=== PATIENT | male | born 1950 | race Caucasian/White ===

== ENCOUNTER → 2017-04-17 | Day surgery (SDC) | payer MEDICARE, BC ==
[~2017-04-17] MED LIST: Dexamethasone 4 MG/ML 5 ML MDV ONE; HYDROmorphone 0.5 MG/0.5 ML Syringe IVPUSH PRN; Ketorolac 30 MG/ML SDV ONE; Lactated Ringers 1,000 ML IV SCH; Lactated Ringers 1,000 ML ONE; Lidocaine 1% 4 ML ONE; Lidocaine 1%/Sod Bicarbonate in NS 8.4% 1 ML Syringe IDERM PRN; Meperidine PF 50 MG/ML Syringe IVPUSH PRN; Midazolam 1 MG/ML 2 ML SDV ONE; Neostigmine Methylsulfate 1 MG/ML 5 ML Syringe ONE; Ondansetron 4 MG/2 ML SDV IVPUSH PRN; Ondansetron 4 MG/2 ML SDV ONE; Phenylephrine/Normal Saline 100 MCG/ML 10 ML Syringe ONE; Propofol 200 MG/20 ML SDV ONE; Rocuronium 50 MG/5 ML Vial ONE; Sodium Chloride 0.9% 10 ML Syringe FLUSH PRN; diphenhydrAMINE 50 MG/ML SDV IVPUSH PRN; fentaNYL 100 MCG/2 ML SDV IVPUSH PRN; fentaNYL 250 MCG/5 ML SDV ONE
--- NOTE | 2017-04-17 08:11 | PCM.PREANE ---
Preanesthetic Assessment - Procedure Proposed Procedure: Laparoscopi umbilical hernia repair with mesh - Anesthesia/Transfusion/Family Hx Anesthesia History: Prior Anesthesia Without Reaction Family History of Anesthesia Reaction: No Transfusion History: No Prior Transfusion(s) - Review of Systems General: No Symptoms Pulmonary: Other (TRINITY with CPAP) Cardiovascular: Other (HTN) Gastrointestinal: No Symptoms Neurological: No Symptoms Other: Reports: Diabetes (IDDM) - Physical Assessment NPO Status Date: 04/16/17 NPO Status Time: 19:00 Pulse: 71 O2 Sat by Pulse Oximetry: 96 Respiratory Rate: 20 Blood Pressure: 127/79 Temperature: 36.0 C Height: 1.85 m Weight: 112 kg ASA Class: 2 Mental Status: Alert & Oriented x3 Airway Class: Mallampati = 2 Dentition: Reports: Normal Dentition Thyro-Mental Finger Breadths: 3 Mouth Opening Finger Breadths: 3 ROM/Head Extension: Limited/Partial (cervical neck fusion) Lungs: Clear to Auscultation, Normal Respiratory Effort Cardiovascular: Regular Rate, Regular Rhythm - Lab Values: Laboratory Last Values POC Glucose 93 mg/dL (80-115) 04/17/17 07:53 - Allergies Allergies/Adverse Reactions: Allergies Allergy/AdvReac Type Severity Reaction Status Date / Time No Known Drug Allergies Allergy Other Verified 04/16/17 12:50 - Blood Blood Available: No Product(s) Available: None - Anesthesia Plan Pre-Op Medication Ordered: None - Acknowledgements Anesthesia Type Planned: General Anesthesia Pt an Appropriate Candidate for the Planned Anesthesia: Yes Alternatives and Risks of Anesthesia Discussed w Pt/Guardian: Yes Pt/Guardian Understands and Agrees with Anesthesia Plan: Yes PreAnesthesia Questionnaire HEENT History: Reports: Impaired Vision Cardiovascular History: Reports: Arrhythmia, High Cholesterol, Hypertension Other Cardiovascular History: Frequent PVCs, tachycardia Respiratory History: Reports: Sleep Apnea Other Respiratory History: CPAP to sleep Gastrointestinal History: Reports: GERD, Other (See Below) Other Gastrointestinal History: symptomatic umbilical hernia Genitourinary History: Reports: Chronic Renal Insuffiency, Renal Calculus, Other (See Below) Other Genitourinary History: epididymytis [employer] History: Reports: None Musculoskeletal History: Reports: Arthritis, Osteoarthritis, Osteoporosis Neurological History: Reports: Neuropathy, Diabetic, Other (See Below) Other Neuro History: inflammatory spondylopathy of cervical region Psychiatric History: Reports: None Endocrine/Metabolic History: Reports: Diabetes, Type II Hematologic History: Reports: None Immunologic History: Reports: None Oncologic (Cancer) History: Reports: None Dermatologic History: Reports: None - Past Surgical History HEENT Surgical History: Reports: Tonsillectomy, Other (See Below) Other HEENT Surgeries/Procedures: uvulectomy Respiratory Surgical History: Reports: None GI Surgical History: Reports: Colonoscopy Endocrine Surgical History: Reports: None Neurological Surgical History: Reports: C-Spine, Other (See Below) Other Neurological Surgeries/Procedures: multiple back surgeries, cervical surgery Musculoskeletal Surgical History: Reports: Knee Replacement, Other (See Below) Other Musculoskeletal Surgeries/Procedures:: discs replaced in neck, back surgery 2016 Oncologic Surgical History: Reports: None Dermatological Surgical History: Reports: None - SUBSTANCE USE Smoking Status *Q: Former Smoker Days Per Week of Alcohol Use: 0 Recreational Drug Use History: No - HOME MEDS Home Medications: Home Meds Glimepiride 4 mg PO DAILY 08/22/13 [History] Hydrochlorothiazide 12.5 mg PO DAILY 08/22/13 [History] Insulin Glarg,Human.Rec.Analog [LantUS] 35 unit SUBCUT QAM 08/22/13 [History] Simvastatin [Zocor] 40 mg PO BEDTIME 08/22/13 [History] Amitriptyline [Elavil] 25 mg PO BEDTIME PRN 06/11/14 [History] Aspirin [Melissa Chewable] 81 mg PO DAILY 06/11/14 [History] Cholecalciferol (Vitamin D3) [Vitamin D3] 1,000 units PO DAILY 06/11/14 [History ] Metoprolol Succinate [Toprol XL] 50 mg PO DAILY 06/11/14 [History] Candesartan [Atacand] 16 mg PO DAILY 11/30/15 [History] Flecainide Acetate 100 mg PO BID 11/30/15 [History] Insulin Glarg,Human.Rec.Analog [Lantus Solostar] 30 unit SUBCUT BEDTIME [History] Potassium Citrate [Potassium Citrate ER] 10 meq PO BID 03/19/16 [History] oxyCODONE 5 mg PO BID PRN 03/19/16 [History] Fish Oil/[place]-3 Fatty Acids [Fish Oil 1,000 MG] 1 gm PO DAILY 04/16/17 [History ] Gabapentin [Neurontin] 300 mg PO TID 04/16/17 [History] Liraglutide [Victoza] 1.8 ml SQ DAILY 04/16/17 [History] Saw [place] 160 mg PO DAILY 04/16/17 [History] Tamsulosin [Flomax] 0.8 mg PO DAILY 04/16/17 [History] - CURRENT (IN HOUSE) MEDS Current Meds: Current Medications Lactated Ringer's (Ringers, Lactated) 1,000 mls @ 125 mls/hr IV ASDIRECTED TAD Stop: 04/17/17 23:00 Lidocaine/Sodium Bicarbonate (Buffered Lidocaine 1% In Ns 8.4%) 0.25 ml IDERM ONETIME PRN PRN Reason: Prior to IV Start Stop: 04/17/17 18:00 Sodium Chloride (Saline Flush) 10 ml FLUSH ASDIRECTED PRN PRN Reason: Keep Vein Open Stop: 04/17/17 18:00 Discontinued Medications Bupivacaine HCl (Marcaine 0.5%) Confirm Administered Dose 30 ml .ROUTE .STK-MED ONE Stop: 04/17/17 07:48
[2017-04-17] MEDS: Bupivacaine 0.5% 30 ML SDV ONE ×2 (09:55→10:20)
--- NOTE | 2017-04-17 10:36 | PCM.POSTAN ---
POST ANESTHESIA ASSESSMENT - MENTAL STATUS Mental Status: Alert, Oriented - VITAL SIGNS Pulse Rate: 70 SaO2: 98 Resp Rate: 17 Blood Pressure: 138/91 Temperature: 36.2 C - RESPIRATORY Respiratory Status: Respiratory Rate WNL, Airway Patent, O2 Saturation Stable, Supplemental Oxygen - CARDIOVASCULAR CV Status: Pulse Rate WNL, Blood Pressure Stable - GASTROINTESTINAL GI Status: No Symptoms - PAIN Pain Score: 4 (opioids given) - POST OP HYDRATION Hydration Status: Adequate & Stable
[2017-04-17 12:06] VITALS: BP 132/90
--- NOTE | 2017-04-17 17:09 | OR ---
DATE OF OPERATION: 04/17/2017 SURGEON: Yamil Marlow MD PREOPERATIVE DIAGNOSIS: Incarcerated symptomatic umbilical hernia. POSTOPERATIVE DIAGNOSIS: Incarcerated symptomatic umbilical hernia. OPERATION PERFORMED: Laparoscopic umbilical hernia repair. INDICATIONS: This 66-year-old has a symptomatic umbilical hernia. He has a tender umbilical lump that is not reduced. Options are discussed and surgery is planned. DESCRIPTION OF PROCEDURE: The patient was brought to surgery. Appropriate consent had been obtained. Time-out was instituted. General anesthesia was induced and after intubation, he was prepped with ChloraPrep and draped in the usual manner. He was given cefazolin 2 g IV preop. Sequentials were used. Left upper quadrant incision was made for a Veress needle and pneumoperitoneum was instituted without complications. Following this, a 5 mm Ethicon port was placed. We used the 5 mm 30 degree scope. He did have incarcerated omentum in this umbilical hernia defect. Under visualization caudal to this, a 5 mm port was placed after making a small incision and then we placed a 10 mm port without difficulty. Appropriate trocars were placed. We then turned our attention to the umbilical defect. The omentum could not be reduced, so we came across this with the Harmonic Scalpel and then the abdominal fat around this was incised with the Harmonic Scalpel and removed. The defect measured about 1 cm. Once everything was dissected, we used a 11.4 cm mesh. The suture was placed in the middle of this. This was a monofilament suture and then the mesh was wetted down and placed through the 10 mm port. We used a fascial closure device to grasp the suture and then we gently brought this to the abdominal wall. The position was excellent. We then tacked this in place using the SecureStrap. We had excellent approximation and the mesh was flat. I placed 4 tacks and then we placed another 4 tacks between that and the hernia defect. The suture was removed. We then used 0.[address]aine [address] in the preperitoneal space around the mesh and around the ports. Pneumoperitoneum was evacuated. The ports were removed. Closure was done with a 4-0 Monocryl and Dermabond was used. Blood loss about 3 mL. Complications, none. He tolerated the procedure well. ANESTHESIA: ESTIMATED BLOOD LOSS: MMODAL /[id number]
== END | disposition home or self-care (01) ==
LOC: JD.SDS 07:34
PROVIDERS: ATTEND Surgery
DX: K42.0 Umbilical hernia with obstruction, without gangrene (principal); G47.33 Obstructive sleep apnea (adult) (pediatric); E78.00 Pure hypercholesterolemia, unspecified; K21.9 Gastro-esophageal reflux disease without esophagitis; I12.9 Hypertensive chronic kidney disease with stage 1 through stage 4 chronic kidney disease, or unspecified chronic kidney disease; E11.22 Type 2 diabetes mellitus with diabetic chronic kidney disease; N18.9 Chronic kidney disease, unspecified; M19.90 Unspecified osteoarthritis, unspecified site; M81.0 Age-related osteoporosis without current pathological fracture; E11.40 Type 2 diabetes mellitus with diabetic neuropathy, unspecified; Z90.89 Acquired absence of other organs; Z99.89 Dependence on other enabling machines and devices; Z87.442 Personal history of urinary calculi; Z98.890 Other specified postprocedural states; Z96.659 Presence of unspecified artificial knee joint; Z87.891 Personal history of nicotine dependence; Z79.4 Long term (current) use of insulin; Z79.82 Long term (current) use of aspirin; Z79.899 Other long term (current) drug therapy
CPT/HCPCS: 36415; 49653; 80053; 82962; 85025; J1100; J1885; J2250; J2405; J2710; J3010; J7120; C1781; J2704

== ENCOUNTER 2022-02-04 08:07 | Emergency (ER) | payer MEDICARE, BC ==
[2022-02-04] MEDS ORDERED: Cephalexin 500 MG Cap PO ONE (09:46)
[2022-02-04 11:08] VITALS: BP 122/70; PULSE 64
== END 2022-02-04 11:30 | disposition home or self-care (01) ==
LOC: JD.ED 08:07
DX: T81.31XA Disruption of external operation (surgical) wound, not elsewhere classified, initial encounter (principal); E78.00 Pure hypercholesterolemia, unspecified; I10 Essential (primary) hypertension; K21.9 Gastro-esophageal reflux disease without esophagitis; M19.90 Unspecified osteoarthritis, unspecified site; E11.9 Type 2 diabetes mellitus without complications; Z79.4 Long term (current) use of insulin; Z79.82 Long term (current) use of aspirin; Z79.899 Other long term (current) drug therapy
CPT/HCPCS: 99283; A9270

== ENCOUNTER 2022-02-05 11:41 | Day surgery (SDC) | payer MEDICARE, BC ==
[~2022-02-05 11:41] MED LIST changes: -Dexamethasone 4 MG/ML 5 ML MDV ONE; -HYDROmorphone 0.5 MG/0.5 ML Syringe IVPUSH PRN; -Ketorolac 30 MG/ML SDV ONE; -Lactated Ringers 1,000 ML ONE; -Lidocaine 1% 4 ML ONE; -Meperidine PF 50 MG/ML Syringe IVPUSH PRN; -Midazolam 1 MG/ML 2 ML SDV ONE; -Neostigmine Methylsulfate 1 MG/ML 5 ML Syringe ONE; -Ondansetron 4 MG/2 ML SDV IVPUSH PRN; -Ondansetron 4 MG/2 ML SDV ONE; -Phenylephrine/Normal Saline 100 MCG/ML 10 ML Syringe ONE; -Propofol 200 MG/20 ML SDV ONE; -Rocuronium 50 MG/5 ML Vial ONE; -Sodium Chloride 0.9% 10 ML Syringe FLUSH PRN; -diphenhydrAMINE 50 MG/ML SDV IVPUSH PRN; -fentaNYL 100 MCG/2 ML SDV IVPUSH PRN; -fentaNYL 250 MCG/5 ML SDV ONE
[2022-02-05] MEDS ORDERED: Bupivacaine 0.25% 10 ML SDV ONE (12:19)
[2022-02-05] MEDS ORDERED: Lidocaine 1% 5 ML VIAL ONE (13:49)
[2022-02-05] MEDS ORDERED: Ondansetron 4 MG/2 ML SDV ONE (13:49)
[2022-02-05] MEDS ORDERED: fentaNYL 100 MCG/2 ML SDV ONE (13:49)
[2022-02-05] MEDS ORDERED: Propofol 200 MG/20 ML SDV ONE (13:49)
[2022-02-05] MEDS ORDERED: Ketamine 500 mg/10 ML MDV ONE (13:50)
[2022-02-05] MEDS ORDERED: ceFAZolin 2 GM Vial ONE (13:52)
[2022-02-05 13:54] VITALS: BP 135/88; PULSE 69
[2022-02-05] MEDS ORDERED: Midazolam 1 MG/ML 2 ML SDV ONE (14:04)
[2022-02-05] MEDS ORDERED: Sodium Chloride 0.9% 10 ML Syringe FLUSH SCH (21:00)
== END 2022-02-05 15:28 | disposition home or self-care (01) ==
LOC: JD.SDS 11:41
PROVIDERS: ATTEND Orthopaedic Surgery
DX: T81.30XA Disruption of wound, unspecified, initial encounter (principal); I13.0 Hypertensive heart and chronic kidney disease with heart failure and stage 1 through stage 4 chronic kidney disease, or unspecified chronic kidney disease; I50.42 Chronic combined systolic (congestive) and diastolic (congestive) heart failure; N18.30 Chronic kidney disease, stage 3 unspecified; E11.22 Type 2 diabetes mellitus with diabetic chronic kidney disease; E11.40 Type 2 diabetes mellitus with diabetic neuropathy, unspecified; G47.33 Obstructive sleep apnea (adult) (pediatric); E78.2 Mixed hyperlipidemia; N40.0 Benign prostatic hyperplasia without lower urinary tract symptoms; Z79.4 Long term (current) use of insulin; Z79.899 Other long term (current) drug therapy; Z98.890 Other specified postprocedural states; Z87.891 Personal history of nicotine dependence
CPT/HCPCS: 12021; J0690; J2250; J2405; J2704; J3010; J3490; J7120; 00400; 99100

== ENCOUNTER 2023-07-02 10:43 | Emergency (ER) | payer MEDICARE, BC ==
[2023-07-02 11:14] LABS: BASOPHILS ABSOLUTE AUTO 0.1 K/mm3 (0.0-0.2); EOSINOPHILS ABSOLUTE AUTO 0.6 K/mm3 (0.0-0.4); EOSINOPHILS PERCENT AUTO 6.8 % (0.0-6.0); HEMATOCRIT 59.8 % (42.0-52.0); HEMOGLOBIN 19.6 gm/dl (14.0-18.0); IMMATURE GRAN ABSOLUTE AUTO 0.07 K/mm3 (0.00-0.05); IMMATURE GRAN PERCENT AUTO 0.8 % (0.0-0.4); LYMPHOCYTES ABSOLUTE AUTO 1.5 K/mm3 (1.0-4.8); LYMPHOCYTES PERCENT AUTO 16.4 % (24.0-44.0); MEAN CORPUSCULAR HEMOGLOBIN 30.6 pg (28.0-32.0); MEAN CORPUSCULAR HGB CONC 32.8 g/dl (32.0-36.0); MEAN CORPUSCULAR VOLUME 93.4 fl (83.0-99.0); MEAN PLATELET VOLUME 10.1 fl (9.4-12.4); MONOCYTES ABSOLUTE AUTO 0.7 K/mm3 (0.0-0.8); MONOCYTES PERCENT AUTO 7.8 % (0.0-8.0); NEUTROPHILS PERCENT AUTO 67.2 % (41.0-71.0); PLATELET COUNT,PLT 225 K/mm3 (150-400); WHITE BLOOD CELL COUNT,WBC 8.96 K/mm3 (3.9-11.3)
[2023-07-02 11:36] LABS: A/G RATIO 1.1 (1-2); ALANINE AMINOTRANSFERASE,ALT 40 U/L (16-63); ALBUMIN 3.7 g/dl (3.4-5.0); ALKALINE PHOSPHATASE 72 U/L (46-116); AMYLASE 56 U/L (25-115); ANION GAP 12.6 (5-15); ASPARTATE AMNIOTRANSFERASE,AST 37 U/L (15-37); BILIRUBIN TOTAL 0.8 mg/dL (0.2-1.0); BLOOD UREA NITROGEN,BUN 28 mg/dL (7-18); BUN/CREATININE RATIO 17.5 (14-18); CALCIUM 9.6 mg/dL (8.5-10.1); CARBON DIOXIDE,CO2 28 mEq/L (21-32); CHLORIDE,CL 104 mEq/L (98-107); CREATININE 1.6 mg/dL (0.7-1.3); ESTIMATED GFR 46 mL/min (>60); GLUCOSE RANDOM 186 mg/dL (70-99); POTASSIUM,K 5.6 mEq/L (3.5-5.1); PROTEIN TOTAL,TP 7.1 g/dl (6.4-8.2); SODIUM,NA 139 mEq/L (136-145)
[2023-07-02 11:39] LABS: INR 1.17; PROTHROMBIN TIME 12.4 SECONDS (9.7-12.0)
[2023-07-02] MEDS ORDERED: Naloxone 0.4 MG/ML SDV IVPUSH PRN ×2 (11:46→12:31)
[2023-07-02] MEDS: HYDROmorphone 0.5 MG/0.5 ML Syringe IVPUSH ONE ×2 (11:54→13:05)
[2023-07-02] MEDS: Sodium Chloride 0.9% 10 ML Syringe FLUSH PRN (11:56)
[2023-07-02] MEDS: Iopamidol 612 MG/ML 30 ML SDV IV ONE (12:23)
[2023-07-02] MEDS: Sodium Chloride 0.9% 45 ML IV SCH (12:23)
[2023-07-02] MEDS: Iopamidol 612 MG/ML 100 ML Bottle IVPUSH ONE (12:23)
[2023-07-02 14:03] LABS: APPEARANCE,URINE CLEAR (Clear); BILIRUBIN,URINE NEGATIVE (Negative); COLOR,URINE YELLOW (Yellow); GLUCOSE,URINE 2+ (Negative); KETONES,URINE NEGATIVE (Negative); LEUKOCYTE ESTERASE,URINE NEGATIVE (Negative); NITRITE,URINE NEGATIVE (Negative); OCCULT BLOOD,URINE TRACE-INTACT (Negative); PROTEIN,URINE 2+ (Negative); UROBILINOGEN,URINE 0.2 (0.2-1.0)
[2023-07-02] MEDS: Methocarbamol 500 MG Tab PO ONE (14:14)
[2023-07-02 14:44] LABS: BARBITURATE SCREEN,URINE NEGATIVE (CUTOFF=200); BENZODIAZEPINES SCREEN,URINE NEGATIVE (CUTOFF=150); BUPRENORPHINE SCREEN,URINE NEGATIVE (CUTOFF=10); METHADONE SCREEN, URINE NEGATIVE (CUT0FF=200); METHAMPHETAMINES SCREEN, URINE NEGATIVE (CUTOFF=500); OXYCODONE SCREEN,URINE NEGATIVE (CUT0FF=100); THC SCREEN,URINE 20 NG/ML NEGATIVE (CUTOFF=50)
[2023-07-02 14:45] LABS: AMPHETAMINES SCREEN, URINE NEGATIVE (CUTOFF=500)
[2023-07-02 14:53] LABS: BACTERIA,URINE RARE /hpf (FEW); EPITHELIAL CELLS,URINE 0-5 /hpf (0-5); MUCUS,URINE NOT SEEN /hpf (FEW); RBC,URINE 0-5 /hpf (0-5); WBC,URINE 0-5 /hpf (0-5)
[2023-07-02 17:40] VITALS: BP 124/95; PULSE 62
== END 2023-07-02 15:10 | disposition home or self-care (01) ==
LOC: JD.ED 10:43
DX: M25.511 Pain in right shoulder (principal); M79.652 Pain in left thigh; M54.50 Low back pain, unspecified; K21.9 Gastro-esophageal reflux disease without esophagitis; I12.0 Hypertensive chronic kidney disease with stage 5 chronic kidney disease or end stage renal disease; E11.22 Type 2 diabetes mellitus with diabetic chronic kidney disease; N18.9 Chronic kidney disease, unspecified; E11.40 Type 2 diabetes mellitus with diabetic neuropathy, unspecified; Z79.4 Long term (current) use of insulin; Z79.899 Other long term (current) drug therapy; Z79.82 Long term (current) use of aspirin; W19.XXXA Unspecified fall, initial encounter
CPT/HCPCS: 36415; 70450; 71260; 72125; 72128; 72131; 73030; 74177; 80053; 80306; 80307; 81001; 82150; 83605; 85025; 85610; 86850; 86900; 86901; 96374; 96376; 99284; A9270; J1170; J3490; Q9967; 99283

== ENCOUNTER 2024-02-23 16:37 | Emergency (ER) | payer MEDICARE, BC ==
[2024-02-23 17:57] LABS: BASOPHILS ABSOLUTE AUTO 0.1 K/mm3 (0.0-0.2); BASOPHILS PERCENT AUTO 0.7 % (0.0-1.0); EOSINOPHILS ABSOLUTE AUTO 0.2 K/mm3 (0.0-0.4); EOSINOPHILS PERCENT AUTO 2.6 % (0.0-6.0); HEMATOCRIT 47.1 % (42.0-52.0); HEMOGLOBIN 15.2 gm/dl (14.0-18.0); IMMATURE GRAN ABSOLUTE AUTO 0.03 K/mm3 (0.00-0.05); IMMATURE GRAN PERCENT AUTO 0.3 % (0.0-0.4); LYMPHOCYTES ABSOLUTE AUTO 1.6 K/mm3 (1.0-4.8); LYMPHOCYTES PERCENT AUTO 17.4 % (24.0-44.0); MEAN CORPUSCULAR HEMOGLOBIN 30.2 pg (28.0-32.0); MEAN CORPUSCULAR HGB CONC 32.3 g/dl (32.0-36.0); MEAN CORPUSCULAR VOLUME 93.5 fl (83.0-99.0); MEAN PLATELET VOLUME 10.1 fl (9.4-12.4); MONOCYTES ABSOLUTE AUTO 0.7 K/mm3 (0.0-0.8); NEUTROPHILS ABSOLUTE AUTO 6.5 K/mm3 (1.8-7.7); PLATELET COUNT,PLT 200 K/mm3 (150-400); RED BLOOD CELL COUNT 5.04 M/mm3 (4.52-5.90); WHITE BLOOD CELL COUNT,WBC 9.15 K/mm3 (3.9-11.3)
[2024-02-23 18:33] LABS: A/G RATIO 1.1 (1-2); ALBUMIN 3.5 g/dl (3.4-5.0); BILIRUBIN TOTAL 0.5 mg/dL (0.2-1.0); BUN/CREATININE RATIO 16.9 (14-18); CALCIUM 8.9 mg/dL (8.5-10.1); CREATININE 1.6 mg/dL (0.7-1.3); EST CRCL DRUG DOSING (CG) 45.81 mL/min; MAGNESIUM 2.1 mg/dL (1.8-2.4); PROTEIN TOTAL,TP 6.6 g/dl (6.4-8.2)
[2024-02-23] MEDS: Sodium Chloride 0.9% 10 ML Syringe FLUSH PRN (18:40)
[2024-02-23] MEDS: Aspirin 81 MG Tab.Chew PO ONE (20:29)
[2024-02-23] MEDS: Heparin Sodium 5,000 Units/ML Vial IVPUSH ONE (21:03)
[2024-02-23] MEDS: Heparin Sodium/D5W 250 ML IV SCH (21:03)
[2024-02-23 23:18] VITALS: BP 161/92; PULSE 78
== END 2024-02-23 23:19 ==
LOC: JD.ED 16:37
DX: T82.897A Other specified complication of cardiac prosthetic devices, implants and grafts, initial encounter (principal); I21.4 Non-ST elevation (NSTEMI) myocardial infarction; E11.22 Type 2 diabetes mellitus with diabetic chronic kidney disease; N18.9 Chronic kidney disease, unspecified; E66.9 Obesity, unspecified; K21.9 Gastro-esophageal reflux disease without esophagitis; E78.00 Pure hypercholesterolemia, unspecified; I12.9 Hypertensive chronic kidney disease with stage 1 through stage 4 chronic kidney disease, or unspecified chronic kidney disease; Z79.84 Long term (current) use of oral hypoglycemic drugs; Z79.4 Long term (current) use of insulin; Z79.899 Other long term (current) drug therapy; Z68.32 Body mass index [BMI] 32.0-32.9, adult
CPT/HCPCS: 36415; 71045; 80053; 82947; 83735; 84484; 85025; 93005; 96365; 96366; 99285; A9270; J1644; J3490; 93010

== ENCOUNTER 2024-06-14 18:00 | Emergency (ER) | payer MEDICARE, BC ==
[2024-06-14 19:26] LABS: BASOPHILS ABSOLUTE AUTO 0.1 K/mm3 (0.0-0.2); BASOPHILS PERCENT AUTO 0.7 % (0.0-1.0); EOSINOPHILS ABSOLUTE AUTO 0.4 K/mm3 (0.0-0.4); EOSINOPHILS PERCENT AUTO 4.5 % (0.0-6.0); HEMOGLOBIN 14.2 gm/dl (14.0-18.0); IMMATURE GRAN ABSOLUTE AUTO 0.02 K/mm3 (0.00-0.05); IMMATURE GRAN PERCENT AUTO 0.2 % (0.0-0.4); LYMPHOCYTES ABSOLUTE AUTO 2.1 K/mm3 (1.0-4.8); LYMPHOCYTES PERCENT AUTO 24.4 % (24.0-44.0); MEAN CORPUSCULAR HEMOGLOBIN 24.3 pg (28.0-32.0); MEAN CORPUSCULAR HGB CONC 29.6 g/dl (32.0-36.0); MEAN CORPUSCULAR VOLUME 82.1 fl (83.0-99.0); MEAN PLATELET VOLUME 11.2 fl (9.4-12.4); MONOCYTES ABSOLUTE AUTO 0.7 K/mm3 (0.0-0.8); MONOCYTES PERCENT AUTO 8.1 % (0.0-8.0); NEUTROPHILS ABSOLUTE AUTO 5.3 K/mm3 (1.8-7.7); NEUTROPHILS PERCENT AUTO 62.1 % (41.0-71.0); PLATELET COUNT,PLT 229 K/mm3 (150-400); RED BLOOD CELL COUNT 5.85 M/mm3 (4.52-5.90); WHITE BLOOD CELL COUNT,WBC 8.61 K/mm3 (3.9-11.3)
[2024-06-14 19:46] LABS: A/G RATIO 1.1 (1-2); ALANINE AMINOTRANSFERASE,ALT 27 U/L (16-63); ALBUMIN 3.4 g/dl (3.4-5.0); ALKALINE PHOSPHATASE 56 U/L (46-116); ANION GAP 14.4 (5-15); ASPARTATE AMNIOTRANSFERASE,AST 23 U/L (15-37); BILIRUBIN TOTAL 0.5 mg/dL (0.2-1.0); BLOOD UREA NITROGEN,BUN 30 mg/dL (7-18); CALCIUM 8.8 mg/dL (8.5-10.1); CARBON DIOXIDE,CO2 26 mEq/L (21-32); CHLORIDE,CL 107 mEq/L (98-107); CREATININE 1.5 mg/dL (0.7-1.3); ESTIMATED GFR 49 mL/min (>60); GLUCOSE RANDOM 95 mg/dL (70-99); POTASSIUM,K 4.4 mEq/L (3.5-5.1); PROTEIN TOTAL,TP 6.4 g/dl (6.4-8.2); SODIUM,NA 143 mEq/L (136-145)
[2024-06-14] MEDS ORDERED: Cyclobenzaprine 10 MG Tab PO ONE (19:53)
[2024-06-14 20:32] VITALS: BP 126/76; PULSE 59
[2024-06-14] MEDS: Acetaminophen/HYDROcodone 325-5 MG Tab PO ONE (20:38)
== END 2024-06-14 20:32 | disposition home or self-care (01) ==
LOC: JD.ED 18:00
DX: M54.50 Low back pain, unspecified (principal); I13.0 Hypertensive heart and chronic kidney disease with heart failure and stage 1 through stage 4 chronic kidney disease, or unspecified chronic kidney disease; I50.9 Heart failure, unspecified; N18.9 Chronic kidney disease, unspecified; E11.40 Type 2 diabetes mellitus with diabetic neuropathy, unspecified; E11.22 Type 2 diabetes mellitus with diabetic chronic kidney disease; E66.9 Obesity, unspecified; Z95.0 Presence of cardiac pacemaker; Z79.82 Long term (current) use of aspirin; Z79.899 Other long term (current) drug therapy; Z79.4 Long term (current) use of insulin
CPT/HCPCS: 36415; 72131; 80053; 85025; 99284; A9270